=== PATIENT | male | born 1990 | race Caucasian/White ===

== ENCOUNTER 2025-07-14 12:45 | Inpatient (IN) | payer OTHER ==
[~2025-07-14] VITALS: Ht 167.6 cm; Wt 74.1 kg
[2025-07-14] MEDS ORDERED: ONDANSETRON HCL/PF 4 MG/2 ML VIAL ONE ×2 (13:21→17:38)
[2025-07-14] MEDS ORDERED: FAMOTIDINE/PF INJ 20 MG/2 ML VIAL IV ONE (13:21)
[2025-07-14] MEDS: IV NS 0.9% 1,000 ML BAG IV ONE ×2 (13:24→22:21)
[2025-07-14] MEDS: FAMOTIDINE/PF INJ 20 MG/2 ML VIAL IV ONE (13:25)
[2025-07-14] MEDS: ONDANSETRON HCL/PF 4 MG/2 ML VIAL IVP ONE (13:25)
[2025-07-14 13:36] LABS: PLATELET COUNT (AUTO) 342 K/uL (150-450); RED BLOOD CELL COUNT(AUTO) 4.95 MIL/uL (4.5-6.0); RED CELL DISTRIBUTION WIDTH 13.8 % (11.5-15.0); WHITE BLOOD COUNT (AUTO) 9.4 K/uL (4.3-11.0)
[2025-07-14 13:41] LABS: CALCIUM, SERUM 10.1 mg/dL (8.5-10.1); CREATININE 1.1 mg/dL (0.6-1.3); SODIUM SERUM 143.0 mmol/L (136-145); UREA NITROGEN, BLOOD 10.0 mg/dL (7-18)
[2025-07-14 13:47] LABS: ASPARTATE AMINOTRANSFERASE 48.0 U/L (15-37); TOTAL PROTEIN, SERUM 9.8 g/dL (6.4-8.2)
[2025-07-14 14:05] LABS: APPEARANCE,URINE CLEAR (CLEAR); BLOOD, URINE NEGATIVE Ery/uL (NEGATIVE); LEUKOCYTE ESTERASE ,URINE NEGATIVE (NEGATIVE); NITRITE, URINE NEGATIVE (NEGATIVE); UGLUCOSE NEGATIVE (NEGATIVE)
[2025-07-14 14:06] LABS: ADD URINE CULTURE NO; SQUAMOUS EPITHELIAL CELL,UR Few /HPF (None Seen)
[2025-07-14] MEDS ORDERED: BUPRENORPHINE HCL 2 MG TAB.SUBL SL ONE ×5 (14:22→22:04)
[2025-07-14] MEDS: BUPRENORPHINE HCL 2 MG TAB.SUBL SL ONE ×4 (14:29→22:21)
[2025-07-14 14:43] LABS: BARBITURATE, URINE NEGATIVE (NEGATIVE); BENZODIAZEPINE, URINE NEGATIVE (NEGATIVE); COCCAINE, URINE NEGATIVE (NEGATIVE); OPIATE, URINE NEGATIVE (NEGATIVE)
[2025-07-14 14:47] LABS: AMPHETAMINE, URINE POSITIVE (NEGATIVE); CANNABINOID, URINE POSITIVE (NEGATIVE)
[2025-07-14] MEDS: ONDANSETRON HCL/PF 4 MG/2 ML VIAL IV ONE (18:11)
[2025-07-14] MEDS ORDERED: METOCLOPRAMIDE HCL 10 MG/2 ML VIAL ONE (18:13)
[2025-07-14] MEDS: METOCLOPRAMIDE HCL 10 MG/2 ML VIAL IV ONE (18:18)
[2025-07-14 22:21] VITALS: BP 165/96; TEMP 98.6; O2SAT 96
[2025-07-14] MEDS ORDERED: Z GUARD REMEDY 4 OZ OINT TP PRN (22:30)
[2025-07-14] MEDS: CLONIDINE HCL 0.1 MG TABLET PO SCH (22:55)
[2025-07-14] MEDS: GABAPENTIN 300 MG CAPSULE PO SCH (22:55)
[2025-07-14] MEDS: IV LR 1000 ML 1,000 ML IV SCH (22:57)
[2025-07-14] MEDS: BUPRENORPHINE HCL 8 MG TAB.SUBL SL SCH (23:17)
[2025-07-14] MEDS: ACETAMINOPHEN 325 MG TABLET PO PRN (23:24)
[2025-07-15] MEDS: ONDANSETRON HCL/PF 4 MG/2 ML VIAL IVP PRN (01:04)
[2025-07-15 05:30] VITALS: BP 121/74
[2025-07-15 08:00] VITALS: BP 119/75; TEMP 98.6; O2SAT 96
[2025-07-15] MEDS: PANTOPRAZOLE 40 MG TABLET.DR PO SCH (08:20)
[2025-07-15] MEDS: IV LR 1000 ML 1,000 ML IV PRN (14:59)
[2025-07-15 16:00] VITALS: BP 116/60; TEMP 100.8; O2SAT 100
[2025-07-15] MEDS ORDERED: ZOLPIDEM TARTRATE 5 MG TABLET PO PRN (18:30)
[2025-07-15 20:00] VITALS: BP 111/66; TEMP 98.2; O2SAT 95; O2SAT 97
[2025-07-16 04:29] VITALS: BP 116/86; TEMP 98.2; O2SAT 100
[2025-07-16 06:56] LABS: ASPARTATE AMINOTRANSFERASE 26.0 U/L (15-37); CALCIUM, SERUM 8.7 mg/dL (8.5-10.1); CREATININE 0.8 mg/dL (0.6-1.3); SODIUM SERUM 142.0 mmol/L (136-145); TOTAL PROTEIN, SERUM 6.9 g/dL (6.4-8.2); UREA NITROGEN, BLOOD 14.0 mg/dL (7-18)
[2025-07-16 08:00] VITALS: BP 115/72; TEMP 98.6; O2SAT 99
[2025-07-16 16:00] VITALS: BP 109/68; TEMP 98.2; O2SAT 94
[2025-07-16 20:00] VITALS: BP 113/71; TEMP 98.6; O2SAT 98
[2025-07-16 20:30] VITALS: BP 113/71; TEMP 98.6; O2SAT 98
[2025-07-17 08:00] VITALS: BP 116/73; TEMP 97.5; O2SAT 99
== END 2025-07-17 09:35 | disposition left against medical advice (07) | DRG 770 ==
LOC: ER 12:50 → MED 20:22
PROVIDERS: ADMIT Nurse Practitioner Acute Care; ATTEND Internal Medicine
DX: F11.23 Opioid dependence with withdrawal (principal); Z59.00 Homelessness unspecified; F19.10 Other psychoactive substance abuse, uncomplicated; F17.210 Nicotine dependence, cigarettes, uncomplicated; Z88.0 Allergy status to penicillin; Z53.29 Procedure and treatment not carried out because of patient's decision for other reasons; F41.9 Anxiety disorder, unspecified; R74.01 Elevation of levels of liver transaminase levels
CPT/HCPCS: 36415; 80048-TC; 80053-TC; 80076-TC; 81001; 83690-TC; 85025-TC; 87081-TC; 87086-TC; 98960; A4223; G0378; G0480; J1308; J2405; J2765; J7030; J7120